=== PATIENT | male | born 1960 | race Caucasian/White ===

== ENCOUNTER 2020-04-22 10:42 | Day surgery (SDC) | payer OTHER ==
[2020-04-20 12:32] LABS: COVID AG,FIA SOURCE NASOPHARYNGEAL
[~2020-04-22] VITALS: Ht 167.6 cm; Wt 116.4 kg
[~2020-04-22 10:42] MED LIST: ATOR20TA65 PO; CeFAZolin 2 GM/DEXTROSE 50 ML IV ONE; HYDR25TA PO; LISI20TA24 PO; RINGERS SOLUTION,LACTATED 1,000 ML IV ONE
[2020-04-22] MEDS ORDERED: SUCCINYLCHOLINE CHLORIDE 20 MG/ML 10 ML VIAL IVP ONE (10:43)
[2020-04-22] MEDS ORDERED: ONDANSETRON HCL 4 MG/2 ML VIAL IVP ONE (10:43)
[2020-04-22] MEDS ORDERED: KETOROLAC TROMETHAMINE 60 MG/2 ML VIAL IM ONE (10:43)
[2020-04-22] MEDS ORDERED: PROPOFOL 1% 20 ML VIAL IVP ONE (10:43)
[2020-04-22] MEDS ORDERED: LIDOCAINE/PF 2% 5 ML VIAL IM ONE (10:43)
[2020-04-22] MEDS ORDERED: ROCURONIUM BROMIDE 10 MG/ML 5 ML VIAL IVP ONE (10:43)
[2020-04-22] MEDS ORDERED: RINGERS SOLUTION,LACTATED 1,000 ML IV ONE (11:00)
[2020-04-22] MEDS ORDERED: CeFAZolin 2 GM/DEXTROSE 50 ML IV ONE (11:30)
[2020-04-22] MEDS ORDERED: MetroNIDAZOLE 500 MG/NACL 100 ML IV ONE (11:30)
[2020-04-22 11:47] LABS: ANION GAP 10 mmol/L (8-16); CALCIUM, TOTAL 9.4 mg/dL (8.8-10.5); CARBON DIOXIDE 26 mmol/L (22-29); CHLORIDE 106 mmol/L (98-107); CREATININE 0.91 mg/dL (0.60-1.30); GLOMERULAR FILTR. RATE CALC > 60 mL/min (>60); GLUCOSE,RANDOM 108 mg/dL (70-110); SODIUM SERUM 142 mmol/L (136-145); UREA NITROGEN, BLOOD 15 mg/dL (7-18)
[2020-04-22 11:54] LABS: ALANINE AMINOTRANSFERASE 26 U/L (12-78); ALBUMIN 4.1 g/dL (3.4-5.0); ALKALINE PHOSPHATASE 66 U/L (46-116); ASPARTATE AMINOTRANSFERASE 16 U/L (15-37); BILIRUBIN,TOTAL 0.4 mg/dL (0.1-1.0); TOTAL PROTEIN, SERUM 7.6 g/dL (6.4-8.2)
[2020-04-22] MEDS ORDERED: SODIUM CHLORIDE 0.9% 0 ML ONE (12:03)
[2020-04-22] MEDS ORDERED: LIDOCAINE 2%/EPI 1:200,000/PF 20 ML VIAL ONE (12:04)
[2020-04-22] MEDS ORDERED: BUPIVACAINE HCL/PF 0.5% 30 ML VIAL ONE (12:04)
[2020-04-22] MEDS ORDERED: IOHEXOL 240 MG/ML 20 ML VIAL ONE (12:05)
[2020-04-22 12:07] LABS: BASOPHILS % (AUTO) 1.4 % (0.0-2.0); EOSINOPHILS % (AUTO) 1.9 % (1.0-6.0); HEMATOCRIT 42.4 % (41-53); HEMOGLOBIN 14.1 g/dL (13.5-17.5); LYMPHOCYTES # (AUTO) 1.9 K/uL (1.0-4.8); LYMPHOCYTES % (AUTO) 41.9 % (22.0-44.0); MEAN CORPUSCULAR HEMOGLOBIN 29.6 pg (26.0-34.0); MEAN CORPUSCULAR HGB CONC 33.2 G/dL (31.0-37.0); MEAN CORPUSCULAR VOLUME 89 fL (80-100); MONOCYTES # (AUTO) 0.5 K/uL (0.1-1.0); MONOCYTES % (AUTO) 10.6 % (2.0-9.0); NEUTROPHILS % (AUTO) 44.2 % (40.0-70.0); PLATELET COUNT (AUTO) 187 K/uL (150-450); RED BLOOD CELL COUNT(AUTO) 4.76 MIL/uL (4.50-5.90); RED CELL DISTRIBUTION WIDTH 13.7 % (11.5-14.5)
[2020-04-22] MEDS ORDERED: ROCURONIUM BROMIDE 10 MG/ML 5 ML VIAL ONE (13:24)
[2020-04-22] MEDS ORDERED: IBUPROFEN 800 MG TABLET PO PRN (14:00)
[2020-04-22] MEDS ORDERED: ACETAMINOPHEN 500 MG TABLET PO PRN (14:00)
[2020-04-22] MEDS ORDERED: KETOROLAC TROMETHAMINE 30 MG/ML VIAL ONE (14:17)
[2020-04-22] MEDS ORDERED: HYDROmorphone 2 MG/ML VIAL ONE ×2 (14:17→14:30)
[2020-04-22] MEDS ORDERED: HYDROmorphone 2 MG/ML VIAL IVP PRN (14:30)
[2020-04-22] MEDS ORDERED: MEPERIDINE-PF 25 MG/ML VIAL IVP PRN (14:30)
[2020-04-22] MEDS ORDERED: KETOROLAC TROMETHAMINE 30 MG/ML VIAL IVP ONE (14:30)
== END 2020-04-22 15:35 | disposition home or self-care (01) ==
LOC: SURGERY 10:42
PROVIDERS: ATTEND Surgery
DX: K80.10 Calculus of gallbladder with chronic cholecystitis without obstruction (principal); Z72.89 Other problems related to lifestyle; I10 Essential (primary) hypertension; R78.5 Finding of other psychotropic drug in blood; Z98.890 Other specified postprocedural states; Z79.899 Other long term (current) drug therapy
CPT/HCPCS: 36415; 47562; 80053; 85025; 87426; 93005; C9803; J0330; J0690 ×2; J1170; J1885 ×2; J2405; J2704; J3490 ×3; J7120; J7030; Q9966